=== PATIENT | female | born 2000 | race African-American/Black ===

== ENCOUNTER 2021-08-02 14:38 | Emergency (ER) | payer MEDICAID ==
[~2021-08-02] VITALS: Ht 177.8 cm; Wt 136.1 kg
[2021-08-02 18:45] VITALS: BP 162/99
== END 2021-08-02 19:05 | disposition home or self-care (01) ==
LOC: ER 14:38
DX: S33.5XXA Sprain of ligaments of lumbar spine, initial encounter (principal); R51.9 Headache, unspecified; M54.2 Cervicalgia; M62.838 Other muscle spasm; E66.9 Obesity, unspecified; V43.52XA Car driver injured in collision with other type car in traffic accident, initial encounter; Y93.89 Activity, other specified; Y92.410 Unspecified street and highway as the place of occurrence of the external cause; Y99.8 Other external cause status
CPT/HCPCS: 70450; 72125; 72131

== ENCOUNTER 2023-07-01 15:23 | Emergency (ER) | payer SELFPAY ==
[~2023-07-01] VITALS: Ht 177.8 cm; Wt 120.0 kg
[2023-07-01 16:00] VITALS: BP 144/88; PULSE 85
[2023-07-01 17:19] LABS: Basophils # (auto) 0 10 ^3/uL (0-0.2); Basophils % (auto) 0.4 % (0.0-2.0); Eosinophils # (auto) 0.1 10 ^3/uL (0-0.8); Eosinophils % (auto) 1.5 % (0.0-7.0); Hematocrit 44.4 % (36.0-46.0); Lymphocytes # (auto) 0.6 10 ^3/uL (0.4-5.4); Lymphocytes % (auto) 9.3 % (10.0-50.0); Mean Corpuscular Hgb Conc. 33.7 g/dL (32.0-36.0); Monocytes # (auto) 0.9 10 ^3/uL (0-1.3); Monocytes % (auto) 14.1 % (0.0-12.0); Neutrophils # (auto) 4.8 10 ^3/uL (1.6-8.6); Neutrophils % (auto) 74.7 % (37.0-80.0); Red Blood Cells 4.99 10^6/uL (4.0-5.20); Red Cell Distribution Width 13.7 % (11.8-14.3); White Blood Cell 6.4 10^3/uL (4.4-10.8)
[2023-07-01 17:40] LABS: Albumin 4.2 g/dL (3.2-4.8); Alkaline Phosphatase 62 U/L (46-116); Anion Gap 6 (5-15); Aspartate Aminotransferase 13 U/L (13-40); BUN/Creatinine Ratio 9.1 (10.0-20.0); Bilirubin, Total 0.7 mg/dL (0.2-1.0); Blood Urea Nitrogen 7 mg/dL (9-23); Calcium 9.1 mg/dL (8.7-10.4); Carbon Dioxide 25 mmol/L (20-30); Chloride 105 mmol/L (98-107); Glucose 83 mg/dL (74-106); Sodium 136 mmol/L (136-145); Total Protein 7.2 g/dL (5.7-8.2)
[2023-07-01 18:10] LABS: Alanine Aminotransferase < 9 U/L (7-40)
[2023-07-01 18:55] VITALS: RESP 18; O2SAT 98
[2023-07-01] MEDS ORDERED: ACETAMINOPHEN 500 MG TAB PO ONE (19:00)
[2023-07-01] MEDS ORDERED: ONDANSETRON ODT 4 MG TAB PO ONE (19:00)
== END 2023-07-01 21:59 | disposition home or self-care (01) ==
LOC: ER 15:23 → EDBD 15:23 → ER 21:59
DX: S00.81XA Abrasion of other part of head, initial encounter (principal); R55 Syncope and collapse; R10.2 Pelvic and perineal pain; R51.9 Headache, unspecified; X58.XXXA Exposure to other specified factors, initial encounter; Y93.89 Activity, other specified; Y92.89 Other specified places as the place of occurrence of the external cause; Y99.8 Other external cause status
CPT/HCPCS: 36415; 70450; 71045; 80053; 84484; 84702; 85025; 99284; Q0162